=== PATIENT | male | born 1970 | race Caucasian/White ===

== ENCOUNTER 2018-06-07 15:54 | Emergency (ER) | payer BC ==
[2018-06-07 16:20] VITALS: BP 140/67; PULSE 77; O2SAT 98
--- NOTE | 2018-06-07 17:18 | ERPHSYRPT ---
- History of Present Illness Time Seen by Provider: 06/07/18 17:12 Exam Limitations: no limitations Patient Subjective Stated Complaint: pain and redness to left calf x 1 week. denies injury Triage Nursing Assessment: alert and oriented. pain in left calf x 1 week. seen at [facility] and sent here to investigate for possible DVT. noted red and painful to touch.. warm to touch/ + pedal pulse present. denies injury. has hx DVT. does wear compression socks Physician History: 48 y/o white male presents with left calf pain and redness. pt sent here from [facility] for eval for dvt. i had a very brief discussion with him as they transported him into room. Since u/Smappo here i put in order for venous doppler of left lower ext to eval for dvt. pt did not have a dvt but dx with a superficial phlebitis. it has been very busy and in an effort to save time i put test order in prior to me performing a complete h and p. pt now wants to leave [facility] and left. Occurred: last week Quality: sharpness Severity of Pain-Max: mild Severity of Pain-Current: mild Modifying Factors: Improves With: movement (hurts to walk) - Past Medical History Pertinent Past Medical History: Yes Neurological History: No Pertinent History Cardiac History: Hypertension, Other Respiratory History: No Pertinent History Endocrine Medical History: No Pertinent History Musculoskeletal History: Other - Past Surgical History Past Surgical History: Yes Musculoskeletal: Orthopedic Surgery Other Surgical History: knee - Social History Smoking Status: Never smoker Exposure to second hand smoke: No Drug Use: none Patient Lives Alone: No - Nursing Vital Signs Nursing Vital Signs: Initial Vital Signs Temperature 98.2 F 06/07/18 16:11 Pulse Rate 77 06/07/18 16:11 Respiratory Rate 18 06/07/18 16:11 Blood Pressure 140/67 06/07/18 16:11 O2 Sat by Pulse Oximetry 98 06/07/18 16:11 Pain Scale Pain Intensity 7 - Physical Exam SpO2: 98 Oxygen Delivery: Room Air Ordered Tests: Active Orders 24 hr Category Date Time Status VENOUS UNILAT/LIMITED EXTREMIT [US] Stat Exams 06/07/18 16:20 Taken - Progress Progress Note: 06/07/18 17:19 i did not obtain a full h and p. pt left [facility] and did not wait for any paper work. 06/07/18 17:20 pt was told he did not have a dvt by u/s tech - Departure Referrals: JARRETT HART, TIFFANY [Primary Care Provider] -
--- NOTE | 2018-06-07 22:14 | XRAY ---
Indication: Left leg pain and swelling. Two-dimensional sonogram and color Doppler imaging of the major venous vessels of the right leg was performed. Comparison: None Medial calf demonstrates subcutaneous venous varicosities with intraluminal echogenicities favoring thrombophlebitis. Elsewhere no thrombus seen in the examined deep venous vessels of the left leg including greater saphenous vein. Patent veins demonstrate normal compressibility. Venous waveforms are normal with and without augmentation. Impression: Subcutaneous thrombophlebitis at the level of the calf. Comment: Preliminary report was given.
== END 2018-06-07 17:15 | disposition left against medical advice (07) ==
LOC: ED 15:54
DX: M79.662 Pain in left lower leg (principal)
CPT/HCPCS: 93971; 99283

== ENCOUNTER 2022-06-30 05:47 | Day surgery (SDC) | payer BC ==
[2022-06-30] MEDS ORDERED: DIPRIVAN 200 MG/20 ML IV ONE ×2 (06:24→07:05)
[2022-06-30] MEDS ORDERED: Versed 2 MG/2 ML Injection ONE (06:24)
[2022-06-30] MEDS ORDERED: SUBLIMAZE 100 MCG/2 ML ONE (06:24)
[2022-06-30] MEDS ORDERED: Xylocaine-Mpf 2% 5 Ml Vial ONE (06:25)
[2022-06-30] MEDS ORDERED: XYLOCAINE 1% HCL 20 ML MDV ONE (06:27)
[2022-06-30] MEDS ORDERED: Marcaine Mpf 0.5% Vial 30 Ml ONE (06:30)
[2022-06-30] MEDS ORDERED: Lactated Ringers 1,000 ML IV SCH (07:00)
[2022-06-30 09:19] VITALS: BP 133/75; PULSE 65; O2SAT 97
--- NOTE | 2022-07-03 09:16 | OP ---
SURGERY DATE/TIME: 06/30/2022 0706 PREOPERATIVE DIAGNOSES: 1) Chronic venous stasis ulceration right leg. 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 3) Failed outpatient therapy. POSTOPERATIVE DIAGNOSES: 1) Chronic venous stasis ulceration right leg. 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 3) Failed outpatient therapy. PROCEDURES: 1) Subcutaneous tissue debridement to level of fat layer right leg. 2) Punch biopsy x2. 3) Pulse lavage. SURGEON: Alireza Gore DPM. DSP ENGINEER: None. ANESTHESIA: Monitored anesthesia care. ESTIMATED BLOOD LOSS: Less than 5 cc. MATERIALS: None. INJECTABLES: 20 cc of a 1:1 mixture of 1% lidocaine plain and 0.5% bupivacaine plain injected in a V block-type fashion just proximal to the ulceration. INDICATION FOR SURGERY: Darwin is a very pleasant 52-year-old male who presented to my service several weeks ago. The patient sees physical therapy for dressing changes multiple times a week. However, he did have some worsening of his wound and was cultured demonstrating methicillin-resistant Staphylococcus aureus infection. The patient presented to my office and we attempted outpatient therapy which failed with oral antibiotics and debridement. At this time discussion with the patient in regards to proceeding with potential admission. The patient deferred this service and wished to be outpatient. We agreed that the patient could have a PICC line placed and IV antibiotics for a number of weeks. However, we would have to present to the OR for a debridement due to the chronic nature of his wound which he has had since 1997. I would like to proceed with a punch biopsy to check for any possibility of any inflammatory causes to ulceration. From that standpoint the patient wishes to proceed. He understands all risks, benefits and complications of the procedure. At this time he is currently infected and noted to have an ulceration, possibility of worsening of the wound developing and we will do everything in our power to prevent that. The patient understands these risks and time was allowed to ask questions which were answered to his apparent satisfaction. It is with that we decided to proceed. DESCRIPTION OF PROCEDURE AND FINDINGS: The patient is brought into the OR and placed on the OR table in the supine position. At this time monitored anesthesia care was administered. The right lower extremity was prepped and draped in the typical sterile fashion. Prior to the procedure a 20 cc of a 1:1 mixture of 1% lidocaine plain and 0.5% bupivacaine plain were injection in V block-type fashion proximal to this wound. At this time a large curette was utilized to debride the wound. Prior to debridement the measurements were 2.5 x 4.5 x 0.1. Following the initial debridement, the patient's wound was 4.2 x 6.8 x 0.1. At this time copious amounts of sterile saline through pulse lavage to flush the surgical site of any remaining necrotic or nonviable tissue. At this time punch biopsy was obtained from the peripheral margin of the wound as well as the central aspect of the wound and sent for pathologic assessment. At this time the wound was once again cleansed. A dressing consisting of Betadine, Adaptic, 4x4, Kerlix and STEPHANIE were applied to the right lower extremity. The patient then was reversed from anesthesia and returned to the postoperative anesthesia care unit with vital signs stable and vascular status intact. The patient handled the anesthesia as well as the procedure without significant complication. Postoperative orders as indicated in the patient's discharge chart.
== END 2022-06-30 08:45 | disposition home or self-care (01) ==
LOC: SDC 05:47
PROVIDERS: ATTEND Podiatrist Foot & Ankle Surgery
DX: I83.018 Varicose veins of right lower extremity with ulcer other part of lower leg (principal); A49.02 Methicillin resistant Staphylococcus aureus infection, unspecified site
CPT/HCPCS: 11042; 11104; 11105; 36415; 80053; 85027; 93005; J2250; J2704; J3010